=== PATIENT | male | born 1965 | race Caucasian/White ===

== ENCOUNTER → 2021-08-20 | Outpatient (CLI) | payer OTHER ==
[~2021-08-20] VITALS: Ht 175.3 cm; Wt 86.2 kg
--- NOTE | 2021-08-25 08:17 | P ---
[facility] [place] [address] PROCEDURE REPORT Name: JIMY FERNÁNDEZ Room #: REG [facility]#: [id number] Admission: 08/20/21 Attend Phys: Fortunato Santacruz Discharge: Date of : 69 Report #: [id number] THIS REPORT FOR: cc: Tati Bhakta MD, Kerry B. MD McElhinney, Christian C. MD ~ cc: Tati Bhakta MD DATE OF SERVICE: 08/20/2021 PROCEDURE PERFORMED: Colonoscopy with biopsies. HISTORY OF PRESENT ILLNESS: The patient is a 56-year-old male who underwent a colonoscopy by myself on 10/01/2014 for diarrhea, frequent bloody stools at that time. He was noted to have colitis involving the distal sigmoid colon and rectum, most likely consistent with ulcerative colitis. Biopsies showed chronic colitis in both areas consistent with ulcerative colitis. The patient was started on Apriso. He was taking 3 per day. After 2 months, he quit taking the medication. He does report intermittent blood in the stools and diarrhea. He is here for repeat colonoscopy. No family history of colon cancer. DESCRIPTION OF PROCEDURE: The risks and benefits of the procedure were explained to the patient, those risks including but not limited to bleeding, perforation and the risk of sedation. He understood these risks and gave informed consent. Sedation was given using propofol per Anesthesia. Next, a digital rectal exam was initially performed, which was normal. Next, using a standard Olympus colonoscope, the scope was placed in the patient's anus and advanced under direct vision to the cecum. The overall prep was excellent. The cecum and ileocecal valve were normal in appearance. Terminal ileum was intubated and normal in appearance. Ascending, transverse and descending colon were normal. In the distal sigmoid colon, in the rectum, moderate colitis was again noted. Biopsies were obtained in each segment today. On retroflexion, small nonbleeding internal hemorrhoids were noted. The scope was then withdrawn and the procedure terminated. The patient tolerated the procedure well. IMPRESSION: 1. Colitis involving the distal sigmoid colon and rectum similar in appearance to 2015. 2. Small internal hemorrhoids. 3. Otherwise, normal colonoscopy. RECOMMENDATIONS: 1. Await biopsy results. 2. Would recommend long-term mesalamine therapy. 3. Repeat colonoscopy in [address] [address] PROCEDURE REPORT Name: PHILLIPGEOVANNIJIMY PALMER Room #: REG [facility] Van#: [id number] Admission: 08/20/21 Attend Phys: Fortunato Santacruz Discharge: Date of : 69 Report #: [id number] Thank you for allowing me to participate in his care. <ELECTRONICALLY SIGNED> By: Fortunato Dhaliwal MD 08/25/21 0817 1001 29 Fortunato Dhaliwal MD /nt
--- NOTE | 2021-08-25 14:07 | PATH ---
[facility] [address] [address] PATHOLOGY RPT PROCEDURE Name: JIMY FERNÁNDEZ Room #: REG [facility].#: [id number] Admission: 08/20/21 Date of : 69 Discharge: Report #: [id number] Path Case #: [id number] [facility] Accession Number: [id number] . 01 Material submitted: . PART A: colon - ASCENDING COLON BIOPSY. Modifiers: ascending PART B: colon - TRANSVERSE COLON BIOPSY. Modifiers: transverse PART C: colon - DESCENDING COLON BIOPSY. Modifiers: descending PART D: sigmoid colon - SIGMOID COLON BIOPSY PART E: rectum - RECTUM COLON BIOPSY . 01 Clinical history: . COLONOSCOPY HX OF ULCERATIVE COLITIS . 02 Diagnosis: A. Ascending colon, biopsy: - Colonic mucosa without significant histopathologic abnormality. - Negative for dysplasia or malignancy. . B. Transverse colon, endoscopic biopsy: - Colonic mucosa with mild lymphoid aggregate, otherwise no significant histopathologic abnormality. - Negative for dysplasia or malignancy. . C. Descending colon, endoscopic biopsy: - Colonic mucosa with mild chronic nonspecific inflammation. - Negative for dysplasia or malignancy. . D. Sigmoid colon, biopsy: - Chronic active colitis, mild in keeping with history of inflammatory bowel disease. - Negative for dysplasia or malignancy. . E. Rectum, endoscopic biopsy: - Chronic active proctitis in keeping with history of ulcerative colitis/inflammatory bowel disease. - Negative for dysplasia or malignancy. . (ANK:kurt; 08/24/2021) MBR 08/24/2021 1046 Local . 02 Electronically signed: . Catie Ojeda MD, Pathologist NPI- [id number] . 01 Gross description: . [address] [address] PATHOLOGY RPT PROCEDURE Name: JIMY FERNÁNDEZ Room #: REG [facility].#: [id number] Admission: 08/20/21 Date of : 69 Discharge: Report #: [id number] Path Case #: [id number] A. Received in formalin labeled "Jimy Fernández, ascending colon BX" are multiple wynn-brown soft tissue fragments measuring in aggregate 0.8 x 0.6 x 0.1 cm. The specimen is submitted entirely in A1. . B. Received in formalin labeled "Jimy Fernández, transverse colon BX" are multiple wynn-brown soft tissue fragments measuring in aggregate 1.6 x 0.3 x 0.1 cm. The specimen is submitted entirely in B1. . C. Received in formalin labeled "Hillary, Jimy, descending colon BX" are multiple wynn-brown soft tissue fragments measuring in aggregate 0.9 x 0.7 x 0.1 cm. The specimen is submitted entirely in C1. . D. Received in formalin labeled "Hillary, Jimy, sigmoid colon BX" are multiple wynn-brown soft tissue fragments measuring in aggregate 1.0 x 0.5 x 0.1 cm. The specimen is submitted entirely in D1. . E. Received in formalin labeled "Hillary, Jimy, rectum colon BX" are multiple wynn-brown soft tissue fragments measuring in aggregate 1.0 x 0.4 x 0.1 cm. The specimen is submitted entirely in E1. [place] [place] 08/21/2021[place] [facility] 08/21/2021 1814 Local . 02 Pathologist provided ICD-10: K52.9, K62.89 . 02 CPT . 452025, 882133, 207893, 697238, 103546 Specimen Comment: A courtesy copy of this report has been sent to [phone], [phone] Specimen Comment: [id number] Specimen Comment: Report sent to / DR GARBER Specimen Comment: A duplicate report has been generated due to demographic updates. Performed at: [address], [place], [place] [id number] MD Dimas Fierro MD Phone: [phone] Performed at: [address] [id number] MD Abbey Rosen MD Phone: [phone]
== END | disposition home or self-care (01) ==
LOC: GI 08:42
PROVIDERS: ATTEND Specialist
DX: K92.1 Melena (principal); K52.9 Noninfective gastroenteritis and colitis, unspecified; K64.8 Other hemorrhoids; K62.89 Other specified diseases of anus and rectum; Z98.890 Other specified postprocedural states; Z79.899 Other long term (current) drug therapy
CPT/HCPCS: 62110; 62900